=== PATIENT | male | born 1965 | race Caucasian/White ===

== ENCOUNTER 2016-06-07 19:48 | Emergency (ER) | payer OTHER ==
[~2016-06-07] VITALS: Ht 180.3 cm; Wt 95.3 kg
[2016-06-07 19:49] VITALS: BP 208/112
[2016-06-07] MEDS ORDERED: NORT10CA2 PO (20:13)
[2016-06-07] MEDS ORDERED: NAPR250T45 PO (20:13)
[2016-06-07] MEDS ORDERED: VITA100L PO (20:13)
[2016-06-07] MEDS ORDERED: ONDANSETRON 4MG/2ML VIAL (J2405) IV ONE (21:45)
[2016-06-07] MEDS ORDERED: NS 500 ML IV ONE (21:45)
[2016-06-07] MEDS ORDERED: MORPHINE 4 MG/ML 1ML SYRINGE IV ONE (21:45)
[2016-06-07 21:57] LABS: BASO % 0.3 % (0.0-1.0); EOS # 0.4 K/mm3 (0.0-0.50); EOS % 4.6 % (0.0-3.0); LARGE UNSTAINED CELL # 0.1 K/mm3 (0.0-0.4); LARGE UNSTAINED CELL % 1.8 % (0.0-4.0); LYMPH # 1.7 K/mm3 (1.5-4.5); LYMPH % 20.1 % (24.0-44.0); MEAN CORPUSCULAR HEMOGLOBIN 32.3 pg (27.0-33.0); MEAN CORPUSCULAR HGB CONC 34.6 g/dl (32.0-36.5); MEAN CORPUSCULAR VOLUME 93.4 fl (80.0-96.0); MONO # 0.5 K/mm3 (0.0-0.8); MONO % 5.7 % (0.0-5.0); NEUTROPHILS # 5.4 K/mm3 (1.8-7.7); NEUTROPHILS % 67.5 % (36.0-66.0); PLATELET COUNT, AUTOMATED 178 k/mm3 (150-450); RED CELL DISTRIBUTION WIDTH 12.4 % (11.5-14.5)
[2016-06-07 22:32] LABS: ALBUMIN/GLOBULIN RATIO 1.08 (1.00-1.93); ALKALINE PHOSPHATASE 93 U/L (45-117); ALT/SGPT 136 U/L (12-78); ANION GAP 10 MEQ/L (8-16); AST/SGOT 57 U/L (15-37); BILIRUBIN,DIRECT 0.2 MG/DL (0.0-0.2); BILIRUBIN,TOTAL 0.7 MG/DL (0.2-1.0); BLOOD UREA NITROGEN 17 MG/DL (7-18); CARBON DIOXIDE LEVEL 26 MEQ/L (21-32); CHLORIDE LEVEL 104 MEQ/L (98-107); CREATININE FOR GFR 0.81 MG/DL (0.70-1.30); GLOMERULAR FILTRATION RATE > 60.0 (>60); GLUCOSE, FASTING 113 MG/DL (70-105); POTASSIUM SERUM 4.4 MEQ/L (3.5-5.1); SODIUM LEVEL 140 MEQ/L (136-145); TOTAL PROTEIN 7.7 GM/DL (6.4-8.2)
[2016-06-07] MEDS ORDERED: NS 1,000 ML IV ONE (23:30)
[2016-06-07] MEDS ORDERED: fentaNYL 100 MCG/2 ML INJECTION (J3010) IV ONE (23:30)
[2016-06-07] MEDS ORDERED: PANTOPRAZOLE 40MG INJ (PROTONIX) (C9113) IV ONE (23:30)
--- NOTE | 2016-06-07 23:40 | REPUSA ---
CLINICAL HISTORY: Abdominal pain. TECHNIQUE: Realtime sonographic images were obtained in multiple projections. COMMENTS: The liver is of increased echogenicity suggestive of fatty infiltration. No discrete hepatic mass is seen. There is no intra or extrahepatic biliary ductal dilatation. CBD measures 4.7 mm. The gallbladder is distended without evidence of calculi. Gallbladder measures 10.4x4.7x4.2 cm. The gallbladder wall is not thickened measuring 1.7 mm and there is no pericholecystic fluid. There is no abdominal ascites. The right kidney measures 12.3x6.1x5.7 cm, free of hydronephrosis. IMPRESSION: Fatty liver infiltration. Distended gallbladder. No cholelithiasis is seen. Thank you for your kind referral of this patient.
[2016-06-07] MEDS ORDERED: ISOVUE-370 76% 100ML VIAL (Q9967) As Ordered ONE (23:48)
--- NOTE | 2016-06-08 01:20 | REPUSA ---
CLINICAL HISTORY: Abdominal pain. TECHNIQUE: Multiple axial, sagittal and coronal CT images were obtained through the abdomen and pelvi s after administration of intravenous contrast material. COMMENTS: The liver is moderately enlarged with decreased attenuation without mass or defect. There is no intra or extrahepatic biliary ductal dilatation. The spleen is normal. The gallbladder is within normal li mits. The pancreas is of normal contour and attenuation characteristics. There is no evidence of adre nal mass. Both kidneys demonstrate prompt and equal nephrograms. The kidneys are normal in size, shape and conf iguration. There is no evidence of renal or ureteral mass. No renal or ureteral calculi are identifie d. There is no hydroureter or hydronephrosis. No evidence for appendicitis. No evidence for small or large bowel obstruction. There is no evidence of abdominal ascites or lymphadenopathy. There is no evidence of intrinsic or extrinsic bladder mass. Mild diffuse thickening of the wall of t he bladder. There is no pelvic ascites or lymphadenopathy. Mild multifocal thickening of the sigmoid and ascending colon. Images of the lung bases show no evidence of pleural or parenchymal mass. There are no pleural effusi ons. The bony structures are free of lytic or blastic lesions. Multilevel degenerative changes are seen in volving the thoracolumbar spine. Scattered calcifications are seen involving the aorta and major bran ches compatible with atherosclerosis. IMPRESSION: Mild multifocal thickening of the sigmoid and ascending colon. Underdistention versus mild multifocal colitis. Hepatomegaly with fatty liver infiltration. Mild diffuse thickening of the wall of the bladder. Thank you for your kind referral of this patient.
--- NOTE | 2016-06-08 08:52 | ECGEPIP ---
Stationary ECG Study 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
== END 2016-06-08 01:57 | disposition home or self-care (01) ==
LOC: M ED 20:46
DX: K75.81 Nonalcoholic steatohepatitis (NASH) (principal); G56.00 Carpal tunnel syndrome, unspecified upper limb; F17.200 Nicotine dependence, unspecified, uncomplicated; F12.90 Cannabis use, unspecified, uncomplicated

== ENCOUNTER → 2017-06-14 | Outpatient (CLI) | payer OTHER ==
[~2017-06-14] MED LIST: PROHANCE 279.3MG/ML 15ML VIAL (A9576) As Ordered; PROHANCE 279.3MG/ML 5ML VIAL (A9576) As Ordered
[2017-06-14 14:38] LABS: BASO # 0.1 10^3/uL (0.0-0.2); BASO % 0.8 % (0.0-1.0); EOS # 0.3 10^3/uL (0.0-0.50); EOS % 3.7 % (0.0-3.0); HEMATOCRIT 48.3 % (42.0-52.0); HEMOGLOBIN 16.7 g/dl (14.0-18.0); IMMATURE GRANULOCYTE % 0.4 % (0-3.0); LYMPH # 2.2 10^3/uL (1.5-4.5); LYMPH % 29.8 % (24.0-44.0); MEAN CORPUSCULAR HEMOGLOBIN 31.7 pg (27.0-33.0); MEAN CORPUSCULAR HGB CONC 34.6 g/dl (32.0-36.5); MEAN CORPUSCULAR VOLUME 91.8 fl (80.0-96.0); MONO # 0.5 10^3/uL (0.0-0.8); MONO % 6.7 % (0.0-5.0); NEUTROPHILS # 4.4 10^3/uL (1.8-7.7); NEUTROPHILS % 58.6 % (36.0-66.0); PLATELET COUNT, AUTOMATED 192 10^3/uL (150-450); RED BLOOD COUNT 5.26 10^6/uL (4.30-6.10); RED CELL DISTRIBUTION WIDTH 12.5 % (11.5-14.5); WHITE BLOOD COUNT 7.5 10^3/uL (4.0-10.0)
[2017-06-14 15:09] LABS: INR 0.89; PROTHROMBIN TIME 12.1 SECONDS (12.4-14.5)
[2017-06-14 15:10] LABS: PARTIAL THROMBOPLASTIN TIME 30.1 SECONDS (26.8-37.9)
[2017-06-14 15:18] LABS: ALBUMIN 4.2 GM/DL (3.2-5.2); ALBUMIN/GLOBULIN RATIO 1.14 (1.00-1.93); ALKALINE PHOSPHATASE 77 U/L (45-117); ALT/SGPT 96 U/L (12-78); ANION GAP 4 MEQ/L (8-16); AST/SGOT 48 U/L (7-37); BILIRUBIN,TOTAL 0.5 MG/DL (0.2-1.0); BLOOD UREA NITROGEN 11 MG/DL (7-18); CALCIUM LEVEL 9.1 MG/DL (8.5-10.1); CARBON DIOXIDE LEVEL 30 MEQ/L (21-32); CHLORIDE LEVEL 104 MEQ/L (98-107); GLOMERULAR FILTRATION RATE > 60.0 (>56); GLUCOSE, FASTING 137 MG/DL (70-100); POTASSIUM SERUM 4.3 MEQ/L (3.5-5.1); SODIUM LEVEL 138 MEQ/L (136-145); TOTAL PROTEIN 7.9 GM/DL (6.4-8.2)
[2017-06-14 15:21] LABS: COLLAGEN EPINEPHRINE 118 SECONDS (74-162)
== END ==
LOC: M LAB 14:48
DX: Z01.818 Encounter for other preprocedural examination (principal); M48.062 Spinal stenosis, lumbar region with neurogenic claudication
CPT/HCPCS: A9576

== ENCOUNTER 2017-07-11 05:43 | Inpatient (IN) | payer OTHER ==
[2017-07-11] MEDS ORDERED: LIDOCAINE 2% JELLY 30 ML As Ordered (06:56)
[2017-07-11] MEDS ORDERED: LIDOCAINE 2% INJ 100 MG/5 ML SDV (FOR ANES.) As Ordered (06:56)
[2017-07-11] MEDS ORDERED: ONDANSETRON 4MG/2ML VIAL (J2405) As Ordered (06:56)
[2017-07-11] MEDS ORDERED: PHENYLephrine HCL 500 MCG/5 ML (100MCG/ML) SYRINGE (J2370) As Ordered (06:56)
[2017-07-11] MEDS ORDERED: SUCCINYLCHOLINE 100 MG/5 ML SYRINGE (J0330) As Ordered (06:56)
[2017-07-11] MEDS ORDERED: dexameTHASONE 4 MG/ML 1ML VIAL (J1100) As Ordered (06:56)
[2017-07-11] MEDS ORDERED: REMIFENTANIL 1MG 3ML VIAL As Ordered ×7 (06:56→12:02)
[2017-07-11] MEDS ORDERED: KETOROLAC 60 MG/2 ML VIAL (J1885) As Ordered (06:56)
[2017-07-11] MEDS ORDERED: PROPOFOL 200 MG/20 ML VIAL As Ordered ×12 (06:56→12:41)
[2017-07-11] MEDS ORDERED: ROCURONIUM BROMIDE 50 MG/5 ML VIAL As Ordered (06:56)
[2017-07-11] MEDS ORDERED: PHENYLEPHRINE INJ 10MG/ML VIAL (J2370) As Ordered (06:56)
[2017-07-11] MEDS ORDERED: MIDAZOLAM INJ 2 MG/2 ML VIAL (J2250) As Ordered (06:57)
[2017-07-11] MEDS ORDERED: fentaNYL 100 MCG/2 ML INJECTION (J3010) As Ordered ×2 (06:57→13:46)
[2017-07-11] MEDS: CETACAINE SPRAY 5GM As Ordered (08:00)
[2017-07-11] MEDS: methylPREDNISolone SUSP 40 MG/ML (DEPO-medrol) VIAL (J1030) As Ordered (09:51)
[2017-07-11] MEDS: BACITRACIN PWD 50,000 UNITS VIAL As Ordered ×2 (09:51→09:57)
[2017-07-11] MEDS: THROMBIN SOLN 20,000 UNITS KIT As Ordered (09:52)
[2017-07-11] MEDS ORDERED: GLYCOPYRROLATE INJ 0.2 MG/ML 2 ML VIAL As Ordered (11:01)
[2017-07-11] MEDS: fentaNYL 100 MCG/2 ML INJECTION (J3010) IV ×4 (13:55→14:10)
[2017-07-11] MEDS ORDERED: ONDANSETRON 4MG/2ML VIAL (J2405) IV ×2 (14:00→14:15)
[2017-07-11] MEDS: LR 1,000 ML IV (14:00)
[2017-07-11] MEDS ORDERED: MORPHINE 10 MG/ML 1ML VIAL (J2270) As Ordered (14:01)
[2017-07-11] MEDS ORDERED: ACETAMINOPHEN TAB 650MG DOSE (2X325MG) PO (14:15)
[2017-07-11] MEDS: MORPHINE 10 MG/ML 1ML VIAL (J2270) IV ×3 (14:15→14:26)
[2017-07-11] MEDS: KCL 20MEQ IN D5/0.45NS 1000ML 1,000 ML IV ×2 (15:46→21:58)
[2017-07-11] MEDS: NORCO, ANEXSIA 5/325MG TABLET (HYDROcodone/ACETAMINOPHEN) PO ×2 (15:46→19:57)
[2017-07-11] MEDS: CEFAZOLIN SOD 1 GM in APPROPRIATE DILUENT 1 EA IV ×2 (17:41→20:00)
[2017-07-11] MEDS: MORPHINE 4 MG/ML 1ML VIAL/SYRINGE (J2270) IV (21:23)
[2017-07-12] MEDS: NORCO, ANEXSIA 5/325MG TABLET (HYDROcodone/ACETAMINOPHEN) PO ×2 (00:30→06:36)
[2017-07-12] MEDS: MORPHINE 4 MG/ML 1ML VIAL/SYRINGE (J2270) IV (02:15)
[2017-07-12] MEDS: CEFAZOLIN SOD 1 GM in APPROPRIATE DILUENT 1 EA IV (02:15)
[2017-07-12] MEDS: KCL 20MEQ IN D5/0.45NS 1000ML 1,000 ML IV (06:29)
== END 2017-07-12 11:40 | disposition home or self-care (01) | DRG 321 ==
LOC: M OR 05:43 → M MS5PR 14:50
PROC: 0RB30ZZ Excision of Cervical Vertebral Disc, Open Approach (ICD-10-PCS; principal; 2017-07-11 07:30)
PROC: 00NW0ZZ Release Cervical Spinal Cord, Open Approach (ICD-10-PCS; 2017-07-11 07:30)
PROC: 01N10ZZ Release Cervical Nerve, Open Approach (ICD-10-PCS; 2017-07-11 07:30)
PROC: 0RG2070 Fusion of 2 or more Cervical Vertebral Joints with Autologous Tissue Substitute, Anterior Approach, Anterior Column, Open Approach (ICD-10-PCS; 2017-07-11 07:30)
DX: M47.12 Other spondylosis with myelopathy, cervical region (principal); G95.20 Unspecified cord compression; M62.81 Muscle weakness (generalized); F17.210 Nicotine dependence, cigarettes, uncomplicated; F10.20 Alcohol dependence, uncomplicated

== ENCOUNTER → 2017-09-04 | Outpatient (CLI) | payer OTHER ==
[2017-09-04 14:11] LABS: BASO # 0.1 10^3/uL (0.0-0.2); BASO % 0.6 % (0.0-1.0); EOS # 0.2 10^3/uL (0.0-0.50); EOS % 2.5 % (0.0-3.0); HEMATOCRIT 44.6 % (42.0-52.0); HEMOGLOBIN 15.3 g/dl (13.5-17.5); IMMATURE GRANULOCYTE % 0.4 % (0-3.0); LYMPH % 25.4 % (24.0-44.0); MEAN CORPUSCULAR HEMOGLOBIN 31.2 pg (27.0-33.0); MEAN CORPUSCULAR HGB CONC 34.3 g/dl (32.0-36.5); MONO # 0.6 10^3/uL (0.0-0.8); MONO % 7.5 % (0.0-5.0); NEUTROPHILS % 63.6 % (36.0-66.0); PLATELET COUNT, AUTOMATED 187 10^3/uL (150-450); RED CELL DISTRIBUTION WIDTH 12.8 % (11.5-14.5); WHITE BLOOD COUNT 7.9 10^3/uL (4.0-10.0)
[2017-09-04 14:14] LABS: COLLAGEN EPINEPHRINE 126 SECONDS (74-162)
[2017-09-04 14:19] LABS: INR 0.95; PROTHROMBIN TIME 12.8 SECONDS (12.4-14.5)
[2017-09-04 14:20] LABS: PARTIAL THROMBOPLASTIN TIME 30.7 SECONDS (26.8-37.9)
[2017-09-04 14:39] LABS: ALBUMIN 3.9 GM/DL (3.2-5.2); ALBUMIN/GLOBULIN RATIO 1.05 (1.00-1.93); ALKALINE PHOSPHATASE 75 U/L (45-117); ALT/SGPT 39 U/L (12-78); ANION GAP 5 MEQ/L (8-16); AST/SGOT 18 U/L (7-37); BILIRUBIN,TOTAL 0.5 MG/DL (0.2-1.0); BLOOD UREA NITROGEN 17 MG/DL (7-18); CALCIUM LEVEL 9.4 MG/DL (8.5-10.1); CARBON DIOXIDE LEVEL 30 MEQ/L (21-32); CHLORIDE LEVEL 106 MEQ/L (98-107); CREATININE FOR GFR 0.91 MG/DL (0.70-1.30); GLOMERULAR FILTRATION RATE > 60.0 (>56); GLUCOSE, FASTING 106 MG/DL (70-100); POTASSIUM SERUM 4.2 MEQ/L (3.5-5.1); SODIUM LEVEL 141 MEQ/L (136-145); TOTAL PROTEIN 7.6 GM/DL (6.4-8.2)
== END ==
LOC: M LAB 13:29
DX: Z01.818 Encounter for other preprocedural examination (principal)
CPT/HCPCS: 71046

== ENCOUNTER 2017-09-12 08:05 | Day surgery (SDC) | payer OTHER ==
[2017-09-12] MEDS: LR 1,000 ML IV (08:48)
[2017-09-12] MEDS ORDERED: fentaNYL 100 MCG/2 ML INJECTION (J3010) As Ordered ×2 (09:43→09:47)
[2017-09-12] MEDS ORDERED: LIDOCAINE 2% INJ 100 MG/5 ML SDV (FOR ANES.) As Ordered (09:43)
[2017-09-12] MEDS ORDERED: dexameTHASONE 4 MG/ML 1ML VIAL (J1100) As Ordered (09:43)
[2017-09-12] MEDS ORDERED: PROPOFOL 200 MG/20 ML VIAL As Ordered ×4 (09:43)
[2017-09-12] MEDS ORDERED: MIDAZOLAM INJ 2 MG/2 ML VIAL (J2250) As Ordered (09:43)
[2017-09-12] MEDS ORDERED: ONDANSETRON 4MG/2ML VIAL (J2405) As Ordered (09:43)
[2017-09-12] MEDS ORDERED: METOCLOPRAMIDE INJ 10MG/2ML VIAL (J2765) As Ordered (09:54)
[2017-09-12] MEDS: methylPREDNISolone SUSP 40 MG/ML (DEPO-medrol) VIAL (J1030) As Ordered (10:18)
[2017-09-12] MEDS: LIDOCAINE 1% SDV INJ 30 ML VIAL As Ordered (10:30)
[2017-09-12] MEDS ORDERED: LR 1,000 ML IV (11:15)
[2017-09-12] MEDS ORDERED: PERCOCET 5MG/325MG TAB PO (11:15)
[2017-09-12] MEDS ORDERED: fentaNYL 100 MCG/2 ML INJECTION (J3010) IV (11:15)
[2017-09-12] MEDS ORDERED: ONDANSETRON 4MG/2ML VIAL (J2405) IV (11:15)
== END 2017-09-12 12:11 | disposition home or self-care (01) ==
LOC: M SDC 08:05
DX: G56.22 Lesion of ulnar nerve, left upper limb (principal); K21.9 Gastro-esophageal reflux disease without esophagitis; M54.81 Occipital neuralgia; G82.54 Quadriplegia, C5-C7 incomplete; G56.02 Carpal tunnel syndrome, left upper limb; M96.1 Postlaminectomy syndrome, not elsewhere classified; M47.892 Other spondylosis, cervical region; Z87.891 Personal history of nicotine dependence; F12.10 Cannabis abuse, uncomplicated
CPT/HCPCS: 64718

== ENCOUNTER → 2017-10-03 | Outpatient (CLI) | payer OTHER | LOC: M RAD 14:20 | DX: M47.892 Other spondylosis, cervical region (principal) | CPT/HCPCS: 72050 ==

== ENCOUNTER 2020-12-01 04:03 | Emergency (ER) | payer MEDICARE, MEDICAID ==
[~2020-12-01] VITALS: Ht 180.3 cm; Wt 86.4 kg
[~2020-12-01 04:03] MED LIST changes: +CIPR-250 PO; +HYDR-3713 PO; +MUPI2OI; +NAPR250T82 PO; +NORT10CA2 PO; -PROHANCE 279.3MG/ML 15ML VIAL (A9576) As Ordered; -PROHANCE 279.3MG/ML 5ML VIAL (A9576) As Ordered; +TYLE325T5 PO; +VITA100L PO
[2020-12-01 05:41] LABS: HEMATOCRIT 51.9 % (42.0-52.0); HEMOGLOBIN 17.8 g/dl (13.5-17.5); MEAN CORPUSCULAR HEMOGLOBIN 31.9 pg (27.0-33.0); MEAN CORPUSCULAR HGB CONC 34.3 g/dl (32.0-36.5); PLATELET COUNT, AUTOMATED 253 10^3/uL (150-450); RED BLOOD COUNT 5.58 10^6/uL (4.30-6.10); WHITE BLOOD COUNT 22.6 10^3/uL (4.0-10.0)
[2020-12-01 05:46] LABS: AMPHETAMINES LEVEL URINE POSITIVE (NEGATIVE); BARBITURATES URINE NEGATIVE (NEGATIVE); BENZODIAZEPINES URINE NEGATIVE (NEGATIVE); CANNABINOIDS URINE POSITIVE (NEGATIVE); COCAINE METABOLITE URINE NEGATIVE (NEGATIVE); METHADONE URINE NEGATIVE (NEGATIVE); OPIATES URINE NEGATIVE (NEGATIVE); PHENCYCLIDINE URINE NEGATIVE (NEGATIVE)
[2020-12-01 06:21] LABS: ALBUMIN 4.7 GM/DL (3.2-5.2); ALT/SGPT 44 U/L (12-78); BILIRUBIN,DIRECT 0.4 MG/DL (0.0-0.2); BILIRUBIN,TOTAL 1.3 MG/DL (0.2-1.0); BLOOD UREA NITROGEN 17 MG/DL (7-18); CALCIUM LEVEL 10.5 MG/DL (8.5-10.1); CARBON DIOXIDE LEVEL 23 MEQ/L (21-32); CHLORIDE LEVEL 101 MEQ/L (98-107); CREATININE FOR GFR 1.25 MG/DL (0.70-1.30); GLOMERULAR FILTRATION RATE > 60.0 (>56); GLUCOSE, FASTING 101 MG/DL (70-100); POTASSIUM SERUM 3.7 MEQ/L (3.5-5.1); SALICYLATE LEVEL 5.4 MG/DL (5.0-30.0); SODIUM LEVEL 137 MEQ/L (136-145); TOTAL PROTEIN 8.4 GM/DL (6.4-8.2)
[2020-12-01 06:22] LABS: ACETAMINOPHEN LEVEL < 2.0 UG/ML (10.0-30.0); ETHYL ALCOHOL (ETHANOL) < 0.003 % (0.000-0.010)
[2020-12-01] MEDS ORDERED: LORazepam 2 MG/ML VIAL IM STA (06:41)
[2020-12-01] MEDS ORDERED: ATOR1TAB19 PO (07:10)
[2020-12-01] MEDS ORDERED: LISI20TA33 PO (07:10)
[2020-12-01] MEDS ORDERED: MED REC COMMENT (12:31)
[2020-12-01] MEDS ORDERED: TIZA4TAB4 PO (12:31)
[2020-12-01] MEDS ORDERED: SILD25TA2 PO (12:31)
[2020-12-01] MEDS ORDERED: HOME MED LIST COMPLETE! XX SCH (12:35)
[2020-12-01] MEDS ORDERED: NICOTINE 21MG/24HR 1 EA TRANSDERMAL TD ONE (15:10)
[2020-12-02 06:28] LABS: BASO # 0.1 10^3/uL (0.0-0.2); BASO % 0.5 % (0.0-1.0); EOS # 0.2 10^3/uL (0.0-0.5); EOS % 1.5 % (0.0-3.0); HEMATOCRIT 48.5 % (42.0-52.0); HEMOGLOBIN 16.4 g/dl (13.5-17.5); LYMPH # 2.3 10^3/uL (1.5-5.0); LYMPH % 22.4 % (24.0-44.0); MEAN CORPUSCULAR HEMOGLOBIN 31.9 pg (27.0-33.0); MEAN CORPUSCULAR HGB CONC 33.8 g/dl (32.0-36.5); MEAN CORPUSCULAR VOLUME 94.4 fl (80.0-96.0); MONO % 10.1 % (2.0-8.0); NEUTROPHILS # 6.6 10^3/uL (1.5-8.5); NEUTROPHILS % 65.1 % (36.0-66.0); PLATELET COUNT, AUTOMATED 193 10^3/uL (150-450); RED BLOOD COUNT 5.14 10^6/uL (4.30-6.10); WHITE BLOOD COUNT 10.2 10^3/uL (4.0-10.0)
--- NOTE | 2020-12-02 06:36 | ECGEPIP ---
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
[2020-12-02] MEDS ORDERED: ATORVASTATIN 20 MG TAB PO ONE ×2 (07:55→09:00)
[2020-12-02] MEDS ORDERED: THIAMINE 100 MG TAB PO SCH (09:00)
[2020-12-02] MEDS ORDERED: ATORVASTATIN 10 MG TAB PO ONE (09:00)
[2020-12-02] MEDS ORDERED: FOLIC ACID 1 MG TAB PO SCH (09:00)
[2020-12-02] MEDS ORDERED: MULTIVITAMINS/MINERALS THERAP 1 TAB PO SCH (09:00)
[2020-12-02] MEDS ORDERED: OXAZEPAM 15 MG CAP PO ONE (13:05)
[2020-12-02] MEDS ORDERED: LORazepam 2 MG TAB PO PRN (13:05)
[2020-12-02 16:12] LABS: RSV AMPLIFICATION NEGATIVE (NEGATIVE)
[2020-12-02 17:47] VITALS: BP 128/78
--- NOTE | 2020-12-02 20:53 | MHIPNPDOC ---
[facility] Progress Note Progress Note DATE OF SERVICE: 12/02/20 HISTORY: 55 year-old man with no prior history of mental health concerns. Brought in by police night previous to this due to irritability and psychotic behavior. Was positive for amphetamines on UTox, denies history of use. Admits to excessive drinking, marijuana use, and past history of cocaine use (with multiple rehab stints). Unsure how he may have taken the amphetamine as he denies any use. Today he is alert and oriented, no longer paranoid. ER physician evaluating requested reconsult before discharging as they did not feel comfortable sending a seemingly stable individual to inpatient mental health. VITAL SIGNS: See below. NEW TEST RESULTS: none signifcant. CURRENT MEDICATIONS: See below. MENTAL STATUS EXAMINATION: Patient is a 55-year old male, who is dressed in a hospital gown, appears older than stated age, hygiene is fair, slightly disheveled grooming. Speech: Is clear with regular rate, rhythm, and volume. Language skills are intact. Thought processes including: logical, linear, goal-directed. Thought content: sad about missing his grandson's birthday, wants to return home , wants to seek alcohol use treatment; Abstract reasoning, and computation: intact. Description of associations: linear. Description of abnormal or psychotic thoughts: denies SI, HI, AVH Judgment: good Insight: good Orientation: x3. Recent and remote memory: intact, 2/3 short recall, long-term recall consistent with documented history Attention span and concentration: intact Language: fluent Fund of knowledge: appropriate Mood: "oh, much better". Affect: tired, stable, congruent DIAGNOSES: 1. Brief Psychotic Disorder 2. Amphetamine use disorder 3. Cannabis Use disorder ASSESSMENT: 55 year-old man who presented with psychosis likely secondary to ingested amphetamines. At present he does not appear to be psychotic and denies all symptoms associated with depression, ashish, psychosis, or significant anxiety. He does struggle with substance use and is willing to accept information regarding outpatient treatment options. No apparent pathology for treatment at this time, does not appear to currently meet criteria for an inpatient mental health admission. MANAGEMENT PLAN: Discharge to home. Provide information regarding outpatient treatment for substance use. TIME SPENT: 25 minutes. Vital Signs Vital Signs Date Time Temp Pulse Resp B/P (MAP) Pulse Ox O2 Delivery O2 Flow Rate FiO2 12/02/20 17:47 98.8 83 18 128/78 (95) 98 Room Air Laboratory Data 24H Labs Laboratory Tests 2 12/02/20 06:09: Immature Granulocyte % (Auto) 0.4, Neutrophils (%) (Auto) 65.1, Lymphocytes (%) (Auto) 22.4L, Monocytes (%) (Auto) 10.1H, Eosinophils (%) (Auto) 1.5, Basophils (%) (Auto) 0.5, Neutrophils # (Auto) 6.6, Lymphocytes # (Auto) 2.3, Monocytes # (Auto) 1.0H, Eosinophils # (Auto) 0.2, Basophils # (Auto) 0.1, Nucleated Red Blood Cells % (auto) 0.0 12/02/20 15:05: Coronavirus (COVID-19)(PCR) NEGATIVE, Influenza Type A (RT-PCR) NEGATIVE, Influenza Type B (RT-PCR) NEGATIVE, Respiratory Syncytial Virus (PCR) NEGATIVE CBC/BMP Laboratory Tests 12/02/20 06:09 Current Medications Current Medications Medications (Trade) Dose Ordered Sig/Arlette Route PRN Reason Start Time Stop Time Status Last Admin Dose Admin Folic Acid (Folic Acid) 1 mg DAILY PO 12/02/20 09:00 12/02/20 17:49 DC 12/02/20 14:21 Home Med (Home Med List Complete!) ASDIRECTED XX 12/01/20 12:35 12/01/20 12:33 DC Lorazepam (Ativan) 2 mg ASDIRECTED PRN PO SEE PROTOCOL 12/02/20 13:05 12/02/20 17:49 DC Lorazepam (Ativan) 2 mg STAT STAT IM 12/01/20 06:41 12/01/20 06:42 DC 12/01/20 08:37 Multivitamins (Theragram-M) 1 tab DAILY PO 12/02/20 09:00 12/02/20 17:49 DC Thiamine HCl (Thiamine HCl) 100 mg BID PO 12/02/20 09:00 12/02/20 17:49 DC 12/02/20 14:22 Allergies Coded Allergies: No Known Allergies (Unverified , 08/29/17) KIRAN LUIS MD Dec 02, 2020 20:53
== END 2020-12-02 17:49 | disposition home or self-care (01) ==
LOC: M ED 04:03
DX: F19.959 Other psychoactive substance use, unspecified with psychoactive substance-induced psychotic disorder, unspecified (principal); R00.0 Tachycardia, unspecified; F17.200 Nicotine dependence, unspecified, uncomplicated; F12.10 Cannabis abuse, uncomplicated
CPT/HCPCS: 80048; 80076; 80143; 80307; 82077; 84443; 85025; 85027; 87631; 93005; 96372; 99284; J2060

== ENCOUNTER → 2024-02-12 | Outpatient (CLI) | payer MEDICARE, MEDICAID ==
[~2024-02-12] MED LIST changes: +ATOR1TAB19 PO; +LISI20TA33 PO; +MED REC COMMENT; +SILD25TA2 PO; +TIZA10TA PO
== END ==
LOC: M PLARAD 12:14
PROVIDERS: ATTEND Internal Medicine Critical Care Medicine
DX: R91.8 Other nonspecific abnormal finding of lung field (principal)
CPT/HCPCS: 78815; A9552

== ENCOUNTER → 2024-02-26 | Outpatient (CLI) | payer MEDICARE, MEDICAID | LOC: M CARPUL 12:28 | PROVIDERS: ATTEND Internal Medicine Critical Care Medicine | DX: Z12.2 Encounter for screening for malignant neoplasm of respiratory organs (principal); F17.218 Nicotine dependence, cigarettes, with other nicotine-induced disorders ==

== ENCOUNTER 2024-03-12 05:49 | Day surgery (SDC) | payer MEDICARE, MEDICAID ==
[~2024-03-12] VITALS: Ht 182.9 cm; Wt 82.1 kg
[~2024-03-12 05:49] MED LIST changes: +ASHWAGANDHA PO; +ATOR40TA75 PO; +CYCL-707 PO; +GALZ50CA PO; +K2 P1TAB PO; +L-AR1000 PO; +METO1TAB7 PO; +MILK250C2 PO; +OMEG10002 PO; +OXYC-517 PO; +PREG25CA3 PO; +RA M500C PO; +SOURSOP PO; +[UNRECOGNIZED DRUG - OTHER] PO; +[UNRECOGNIZED DRUG - OTHER] PO
[2024-03-12] MEDS ORDERED: NS (Normal Saline) 0.9% 1,000 ML IV SCH ×2 (07:00→08:45)
[2024-03-12] MEDS: LIDOCAINE PRES-FREE 2% 10ML AMP INH ONE (07:15)
[2024-03-12] MEDS: ALBUTEROL SULFATE 2.5MG/0.5ML INH NEB SOLN INH ONE (07:15)
[2024-03-12] MEDS: THROMBIN 5,000 UNITS VIAL As Ordered ONE (07:16)
[2024-03-12] MEDS: EPINEPHrine 1MG/10ML SYRINGE 1.5IN As Ordered ONE (07:16)
[2024-03-12] MEDS: CETACAINE SPRAY 5GM As Ordered ONE (07:50)
[2024-03-12] MEDS ORDERED: SUGAMMADEX SODIUM 500 MG/5 ML VIAL (BRIDION) As Ordered ONE (07:51)
[2024-03-12] MEDS ORDERED: LIDOCAINE 2% 100MG/5ML SDV (FOR ANES.) As Ordered ONE (07:51)
[2024-03-12] MEDS ORDERED: MIDAZOLAM INJ 2MG/2ML VIAL As Ordered ONE (07:51)
[2024-03-12] MEDS ORDERED: ONDANSETRON 4MG 2ML VIAL As Ordered ONE (07:51)
[2024-03-12] MEDS ORDERED: propofoL 200 MG/20 ML VIAL As Ordered ONE (07:51)
[2024-03-12] MEDS ORDERED: fentaNYL 100 MCG/2 ML INJECTION As Ordered ONE (07:51)
[2024-03-12] MEDS ORDERED: ROCURONIUM BROMIDE 50MG/5ML VIAL As Ordered ONE (07:51)
[2024-03-12] MEDS ORDERED: ACETAMINOPHEN 1000MG/100ML IV BAG As Ordered ONE (08:03)
[2024-03-12] MEDS ORDERED: ePHEDrine SULFATE 25 MG/5 ML(5MG/ML) SYRINGE As Ordered ONE (08:24)
[2024-03-12] MEDS ORDERED: fentaNYL 100 MCG/2 ML INJECTION IV PRN (08:45)
[2024-03-12] MEDS ORDERED: ONDANSETRON 4MG 2ML VIAL IV PRN (08:45)
[2024-03-12] MEDS ORDERED: oxyCODONE 5MG TAB PO PRN (08:45)
[2024-03-12] MEDS ORDERED: HYDROMORPHONE HCL 0.5 MG/ 0.5 ML SYRINGE IV PRN (08:45)
[2024-03-12 10:14] VITALS: BP 125/58; TEMP 97.5; O2SAT 96
== END 2024-03-12 10:14 | disposition home or self-care (01) ==
LOC: M SDC 05:49
PROVIDERS: ATTEND Internal Medicine Critical Care Medicine
DX: J84.10 Pulmonary fibrosis, unspecified (principal); U07.0 Vaping-related disorder; F17.218 Nicotine dependence, cigarettes, with other nicotine-induced disorders; I10 Essential (primary) hypertension; E78.00 Pure hypercholesterolemia, unspecified; Z79.899 Other long term (current) drug therapy; G62.9 Polyneuropathy, unspecified; I25.10 Atherosclerotic heart disease of native coronary artery without angina pectoris; F10.11 Alcohol abuse, in remission; G47.30 Sleep apnea, unspecified; Z98.1 Arthrodesis status
CPT/HCPCS: 31624; 31628; 31653; 71045; 76000; 87070; 87102; 87116; 87205; 87206; 87449; 88108; 88173; 88305; 88313; J0131; J1100; J2250; J2405; J3010